=== PATIENT | female | born 1990 | race Caucasian/White ===

== ENCOUNTER → 2016-03-21 | Outpatient (REF) | payer OTHER | LOC: M SFHCLERA 14:24 | PROVIDERS: ATTEND Family Medicine | DX: Z34.81 Encounter for supervision of other normal pregnancy, first trimester (principal); Z3A.01 Less than 8 weeks gestation of pregnancy ==

== ENCOUNTER → 2016-03-21 | Outpatient (CLI) | payer OTHER, SELFPAY | LOC: M RAD 17:11 | PROVIDERS: ATTEND Family Medicine | DX: Z34.81 Encounter for supervision of other normal pregnancy, first trimester (principal); Z3A.01 Less than 8 weeks gestation of pregnancy ==

== ENCOUNTER → 2016-03-22 | Outpatient (REF) | payer OTHER ==
[2016-03-23 12:26] LABS: MEAN CORPUSCULAR HEMOGLOBIN 30.7 pg (27.0-33.0); MEAN CORPUSCULAR HGB CONC 32.5 g/dl (32.0-36.5); MEAN CORPUSCULAR VOLUME 94.7 fl (80.0-96.0); RED CELL DISTRIBUTION WIDTH 12.6 % (11.5-14.5); WHITE BLOOD COUNT 7.4 K/mm3 (4.0-10.0)
[2016-03-23 12:58] LABS: ALBUMIN 3.4 GM/DL (3.2-5.2); ALKALINE PHOSPHATASE 76 U/L (45-117); ALT/SGPT 15 U/L (12-78); ANION GAP 12 MEQ/L (8-16); AST/SGOT 9 U/L (15-37); BILIRUBIN,TOTAL 0.1 MG/DL (0.2-1.0); BLOOD UREA NITROGEN 9 MG/DL (7-18); CALCIUM LEVEL 8.4 MG/DL (8.5-10.1); CARBON DIOXIDE LEVEL 23 MEQ/L (21-32); CHLORIDE LEVEL 110 MEQ/L (98-107); CREATININE FOR GFR 0.74 MG/DL (0.55-1.02); GLOMERULAR FILTRATION RATE > 60.0 (>60); GLUCOSE, FASTING 93 MG/DL (70-105); HCG, SERUM QUANTITATIVE 53802 MIU/ML; POTASSIUM SERUM 3.6 MEQ/L (3.5-5.1); SODIUM LEVEL 145 MEQ/L (136-145); TOTAL PROTEIN 6.5 GM/DL (6.4-8.2)
== END ==
LOC: M SFHCLERA 17:53
PROVIDERS: ATTEND Family Medicine
DX: Z34.81 Encounter for supervision of other normal pregnancy, first trimester (principal); Z3A.01 Less than 8 weeks gestation of pregnancy

== ENCOUNTER 2016-03-25 15:04 | Emergency (ER) | payer MEDICAID, SELFPAY ==
--- NOTE | 2016-03-25 17:41 | EDDOCDS ---
Physician Documentation [facility] Name: Homero Franks Age: 25 yrs Sex: Female : 1990 Arrival Date: 03/25/2016 Time: 15:04 Bed TR8 Private MD: Nabeel Villegas MD Disposition: 03/25/16 17:34 Discharged to Home/Self Care. Impression: related conditions, unspecified, first trimester. - Condition is Stable. - Discharge Instructions: First Trimester of . - Medication Reconciliation form. - Follow up: Emergency Department; When: As needed. Follow up: Sim Kebede MD; When: Call to arrange an appointment; Reason: To establish care. - Problem is new. - Symptoms are unchanged. Historical: - Allergies: opioids (Anaphylaxis); - Home Meds: 1. none - PMHx: Asthma; Heart Murmur; - PSHx: Tonsillectomy; Cesearean Section; - Social history: Smoking status: Patient states was never smoker of tobacco. No barriers to communication noted, The patient speaks fluent Marshallese. - Family history: Not pertinent. - : The pt / caregiver states he / she is not on anticoagulants. Home medication list is obtained from the patient. - Exposure Risk Screening:: None identified. SECTION CHIEF: 03/25 15:15 LMP 02/04/2016, Verified, EDC 11/10/2016, Gestational age from LMP: 7 weeks 1 dayrs3 Vital Signs: 15:06 BP 174 / 97; Pulse 109; Resp 18 S; Temp 99.0(O); Pulse Ox 99% on R/A; Weight 92.08 kg / dd6 203 lbs (R); Height 5 ft. 9 in. (175.26 cm) (R); 17:34 BP 144 / 78; Pulse 76; Resp 20 S; Temp 96(T); Pulse Ox 100% on R/A; ms2 15:06 Body Mass Index 29.98 (92.08 kg, 175.26 cm) dd6 MDM: 17:27 Vital Signs ordered. cc10 Signatures: Jas SutherlandRN RN ms2 Tara Polo RN RN rs3 Andrea Garber, PA-C PA-C cc10 MTDD
--- NOTE | 2016-03-25 17:41 | EDDOCDS ---
Nurse's Notes [facility] Name: Homero Franks Age: 25 yrs Sex: Female : 1990 Arrival Date: 03/25/2016 Time: 15:04 Bed TR8 Private MD: Nabeel Villegas MD Diagnosis: related conditions, unspecified, first trimester Presentation: 03/25 15:12 Presenting complaint: Patient states: had ultrasound this afternoon here for rs3 confirmation. received call from Dr. Goldsmith to come to ER, FHT decreased. denies vaginal bleeding/cramps. Adult Sepsis Screening: The patient does not have new or worsening altered mentation. Patient's respiratory rate is less than 22. Systolic blood pressure is greater than 100. Patient has a qSOFA score of 0- Negative Sepsis Screen. Suicide/Homicide risk assessment- the patient denies having any suicidal and/or homicidal ideations and does not present with any other emotional, behavioral or mental health complaints. Status: Patient is not a patient service associate or dependent. Transition of care: patient was not received from another setting of care. 15:12 Acuity: YAMILET Level 3 rs3 15:12 Method Of Arrival: Walkin/Carried/Asstd rs3 Triage Assessment: 15:15 General: Appears in no apparent distress. Pain: Denies pain. Pt Declines HIV testing. 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 none - PMHx: Asthma; Heart Murmur; - PSHx: Tonsillectomy; Cesearean Section; - Social history: Smoking status: Patient states was never smoker of tobacco. No barriers to communication noted, The patient speaks fluent Belizean. - Family history: Not pertinent. - : The pt / caregiver states he / she is not on anticoagulants. Home medication list is obtained from the patient. - Exposure Risk Screening:: None identified. Screenin:39 Screening information is obtained from the patient. Fall risk: No risks identified. ms2 Assistance ADL's: requires no assistance with activities of daily living. Abuse/DV Screen: The patient / caregiver reports he/she is: not in a situation that causes fear, pain or injury. Nutritional screening: No deficits noted. Advance Directives: Currently, there is no health care proxy. There is no active DNR order. There is no living will. There is no Power of Poiser. Advance directive information has not previously been placed in an [facility] medical record. Further advance directive information is declined. home support is adequate. Assessment: 17:38 General: Appears in no apparent distress, Behavior is anxious, cooperative. ms2 Neurological: Level of Consciousness is awake, alert, obeys commands. Respiratory: No deficits noted. Airway is patent Respiratory effort is even, unlabored, Respiratory pattern is regular, symmetrical. Derm: Skin is pink, warm & dry. Musculoskeletal: Range of motion intact in all extremities. Vital Signs: 15:06 BP 174 / 97; Pulse 109; Resp 18 S; Temp 99.0(O); Pulse Ox 99% on R/A; Weight 92.08 kg dd6 (R); Height 5 ft. 9 in. (175.26 cm) (R); 17:34 BP 144 / 78; Pulse 76; Resp 20 S; Temp 96(T); Pulse Ox 100% on R/A; ms2 15:06 Body Mass Index 29.98 (92.08 kg, 175.26 cm) dd6 Vitals: 15:06 Log In Time: March 25, 2016 at 15:04. dd6 ED Course: 15:05 Patient visited by Ian Milton PCA. dd6 15:05 Nabeel Villegas is Private Physician. dd6 15:05 Patient moved to Waiting dd6 15:06 Patient moved to Pre RCE dd6 15:15 Triage Initiated rs3 16:19 Patient moved to Triage 3 dwg 16:21 Patient moved to Triage 1 ld5 17:17 [facility]. cc10 17:17 Eduardo Burks MD is Attending Physician. cc10 17:17 Patient visited by Andrea Garber PA-C. cc10 17:17 Patient visited by Andrea Garber PA-C. cc10 17:34 Sim Kebede MD is Referral Physician. cc10 17:36 Patient moved to TR8 ct3 17:39 The patient / caregiver is instructed regarding the plan of care and ED course. ms2 17:39 No IV's were initiated during this patient's visit. No procedures done that require ms2 assistance. Order Results: There are currently no results for this order. Outcome: 17:34 Discharge ordered by Provider. cc10 17:40 Discharge Assessment: patient administered narcotics - no. The following High Risk ms2 Discharge criteria are identified: None. Discharged to home ambulatory. Condition: stable. Discharge instructions given to patient, Instructed on discharge instructions, follow up and referral plans. Demonstrated understanding of instructions, Pt was receptive of discharge instructions/ teaching. No special radiology studies were completed. Property sent home with patient. 17:41 Patient left the ED. ms2 Signatures: Jas Sutherland,RN RN ms2 Eladio Espinoza RN RN Ian Bradford, SIGN MAKER SIGN MAKER dd6 Tara PoloRN RN rs3 Savi Vides,RN RN ld5 Farzana Valle, SIGN MAKER SIGN MAKER ct3 Andrea Garber, PA-C PA-C cc10 MTDD
--- NOTE | 2016-03-27 18:42 | EDDOCDS ---
Physician Documentation [facility] Name: Homero Franks Age: 25 yrs Sex: Female : 1990 Arrival Date: 03/25/2016 Time: 15:04 Bed TR8 Private MD: Nabeel Villegas MD Disposition: 03/25/16 17:34 Discharged to Home/Self Care. Impression: related conditions, unspecified, first trimester. - Condition is Stable. - Discharge Instructions: First Trimester of . - Medication Reconciliation form. - Follow up: Emergency Department; When: As needed. Follow up: Sim Kebede MD; When: Call to arrange an appointment; Reason: To establish care. - Problem is new. - Symptoms are unchanged. Historical: - Allergies: opioids (Anaphylaxis); - Home Meds: 1. none - PMHx: Asthma; Heart Murmur; - PSHx: Tonsillectomy; Cesearean Section; - Social history: Smoking status: Patient states was never smoker of tobacco. No barriers to communication noted, The patient speaks fluent [place]. - Family history: Not pertinent. - : The pt / caregiver states he / she is not on anticoagulants. Home medication list is obtained from the patient. - Exposure Risk Screening:: None identified. 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 9 in. (175.26 cm) (R); 17:34 BP 144 / 78; Pulse 76; Resp 20 S; Temp 96(T); Pulse Ox 100% on R/A; ms2 15:06 Body Mass Index 29.98 (92.08 kg, 175.26 cm) dd6 MDM: 17:27 Vital Signs ordered. cc10 17:42 [facility] Payment Agreement was scanned into [employer] and attached to record. jp5 17:42 Financial registration complete. jp5 03/26 11:05 T-Sheet-- Draft Copy was scanned into [employer] and attached to record. gb Signatures: Jas SutherlandRN RN ms2 Roselyn Sapp, Reg Reg gb Tara Polo RN RN rs3 Andrea Garber, JUSTICE PAPrakash cc10 Avel Gee jp5 The chart was reviewed and I authenticate all verbal orders and agree with the evaluation and treatment provided.Attachments: 03/25 17:42 [facility] Payment Agreement jp5 03/26 11:05 T-Sheet-- Draft Copy gb Chart Complete MTDD
--- NOTE | 2016-03-27 18:42 | EDDOCDS ---
Nurse's Notes [facility] Name: Homero Franks Age: 25 yrs Sex: Female : 1990 Arrival Date: 03/25/2016 Time: 15:04 Bed TR8 Private MD: Nabeel Villegas MD Diagnosis: related conditions, unspecified, first trimester Presentation: 03/25 15:12 Presenting complaint: Patient states: had ultrasound this afternoon here for rs3 confirmation. received call from Dr. Goldsmith to come to ER, FHT decreased. denies vaginal bleeding/cramps. Adult Sepsis Screening: The patient does not have new or worsening altered mentation. Patient's respiratory rate is less than 22. Systolic blood pressure is greater than 100. Patient has a qSOFA score of 0- Negative Sepsis Screen. Suicide/Homicide risk assessment- the patient denies having any suicidal and/or homicidal ideations and does not present with any other emotional, behavioral or mental health complaints. Status: Patient is not a director pharmacy services or dependent. Transition of care: patient was not received from another setting of care. 15:12 Acuity: YAMILET Level 3 rs3 15:12 Method Of Arrival: Walkin/Carried/Asstd rs3 Triage Assessment: 15:15 General: Appears in no apparent distress. Pain: Denies pain. Pt Declines HIV testing. 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 none - PMHx: Asthma; Heart Murmur; - PSHx: Tonsillectomy; Cesearean Section; - Social history: Smoking status: Patient states was never smoker of tobacco. No barriers to communication noted, The patient speaks fluent Trinidadian. - Family history: Not pertinent. - : The pt / caregiver states he / she is not on anticoagulants. Home medication list is obtained from the patient. - Exposure Risk Screening:: None identified. Screenin:39 Screening information is obtained from the patient. Fall risk: No risks identified. ms2 Assistance ADL's: requires no assistance with activities of daily living. Abuse/DV Screen: The patient / caregiver reports he/she is: not in a situation that causes fear, pain or injury. Nutritional screening: No deficits noted. Advance Directives: Currently, there is no health care proxy. There is no active DNR order. There is no living will. There is no Power of District Manager [employer]. Advance directive information has not previously been placed in an [facility] medical record. Further advance directive information is declined. home support is adequate. Assessment: 17:38 General: Appears in no apparent distress, Behavior is anxious, cooperative. ms2 Neurological: Level of Consciousness is awake, alert, obeys commands. Respiratory: No deficits noted. Airway is patent Respiratory effort is even, unlabored, Respiratory pattern is regular, symmetrical. Derm: Skin is pink, warm & dry. Musculoskeletal: Range of motion intact in all extremities. Vital Signs: 15:06 BP 174 / 97; Pulse 109; Resp 18 S; Temp 99.0(O); Pulse Ox 99% on R/A; Weight 92.08 kg dd6 (R); Height 5 ft. 9 in. (175.26 cm) (R); 17:34 BP 144 / 78; Pulse 76; Resp 20 S; Temp 96(T); Pulse Ox 100% on R/A; ms2 15:06 Body Mass Index 29.98 (92.08 kg, 175.26 cm) dd6 Vitals: 15:06 Log In Time: March 25, 2016 at 15:04. dd6 ED Course: 15:05 Patient visited by Ian Milton PCA. dd6 15:05 Nabeel Villegas is Private Physician. dd6 15:05 Patient moved to Waiting dd6 15:06 Patient moved to Pre RCE dd6 15:15 Triage Initiated rs3 16:19 Patient moved to Triage 3 dwg 16:21 Patient moved to Triage 1 ld5 17:17 Andrea Garber [facility]C [facility] cc10 17:17 Eduardo Burks MD is Attending Physician. cc10 17:17 Patient visited by Andrea Garber PA-C. cc10 17:17 Patient visited by Andrea Garber PA-C. cc10 17:34 Sim Kebede MD is Referral Physician. cc10 17:36 Patient moved to TR8 ct3 17:39 The patient / caregiver is instructed regarding the plan of care and ED course. ms2 17:39 No IV's were initiated during this patient's visit. No procedures done that require ms2 assistance. 17:42 [facility] Payment Agreement was scanned into [employer] and attached to record. jp5 03/26 11:05 T-Sheet-- Draft Copy was scanned into [employer] and attached to record. gb Order Results: There are currently no results for this order. Outcome: 03/25 17:34 Discharge ordered by Provider. cc10 17:40 Discharge Assessment: patient administered narcotics - no. The following High Risk ms2 Discharge criteria are identified: None. Discharged to home ambulatory. Condition: stable. Discharge instructions given to patient, Instructed on discharge instructions, follow up and referral plans. Demonstrated understanding of instructions, Pt was receptive of discharge instructions/ teaching. No special radiology studies were completed. Property sent home with patient. 17:41 Patient left the ED. ms2 Signatures: Jas Sutherland,RN RN ms2 Eladio Espinoza, RN RN dwg Roselyn Sapp, Reg Reg gb Ian Milton, CREDIT ASSESSMENT ANALYST CREDIT ASSESSMENT ANALYST dd6 Tara PoloRN RN rs3 Savi VidesRN RN ld5 Farzana Valle, CREDIT ASSESSMENT ANALYST CREDIT ASSESSMENT ANALYST ct3 Andrea Garber PA-Dion PA-C cc10 Avel Gee jp5 Chart Complete MTDD
--- NOTE | 2016-03-27 18:42 | EDDOCDS ---
Physician Documentation [facility] Name: Homero Franks Age: 25 yrs Sex: Female : 1990 Arrival Date: 03/25/2016 Time: 15:04 Bed TR8 Private MD: Nabeel Villegas MD Disposition: 03/25/16 17:34 Discharged to Home/Self Care. Impression: related conditions, unspecified, first trimester. - Condition is Stable. - Discharge Instructions: First Trimester of . - Medication Reconciliation form. - Follow up: Emergency Department; When: As needed. Follow up: Sim Kebede MD; When: Call to arrange an appointment; Reason: To establish care. - Problem is new. - Symptoms are unchanged. Historical: - Allergies: opioids (Anaphylaxis); - Home Meds: 1. none - PMHx: Asthma; Heart Murmur; - PSHx: Tonsillectomy; Cesearean Section; - Social history: Smoking status: Patient states was never smoker of tobacco. No barriers to communication noted, The patient speaks fluent Ivorian. - Family history: Not pertinent. - : The pt / caregiver states he / she is not on anticoagulants. Home medication list is obtained from the patient. - Exposure Risk Screening:: None identified. 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 9 in. (175.26 cm) (R); 17:34 BP 144 / 78; Pulse 76; Resp 20 S; Temp 96(T); Pulse Ox 100% on R/A; ms2 15:06 Body Mass Index 29.98 (92.08 kg, 175.26 cm) dd6 MDM: 17:27 Vital Signs ordered. cc10 17:42 [facility] Payment Agreement was scanned into [employer] and attached to record. jp5 17:42 Financial registration complete. jp5 03/26 11:05 T-Sheet-- Draft Copy was scanned into [employer] and attached to record. gb Signatures: Jas SutherlandRN RN ms2 Roselyn Sapp, Reg Reg gb Tara Polo RN RN rs3 Andrea Garber, JUSTICE PAPrakash cc10 Avel Gee jp5 The chart was reviewed and I authenticate all verbal orders and agree with the evaluation and treatment provided.Attachments: 03/25 17:42 [facility] Payment Agreement jp5 03/26 11:05 T-Sheet-- Draft Copy gb Chart Complete MTDD
== END 2016-03-25 17:41 | disposition home or self-care (01) ==
LOC: M ED 15:04
DX: O36.8910 Maternal care for other specified fetal problems, first trimester, not applicable or unspecified (principal); O99.511 Diseases of the respiratory system complicating pregnancy, first trimester; J45.909 Unspecified asthma, uncomplicated; O99.411 Diseases of the circulatory system complicating pregnancy, first trimester; R01.1 Cardiac murmur, unspecified; Z88.5 Allergy status to narcotic agent; Z3A.01 Less than 8 weeks gestation of pregnancy

== ENCOUNTER → 2016-03-25 | Outpatient (CLI) | payer OTHER, SELFPAY ==
--- NOTE | 2016-03-25 13:58 | REP ---
TRANSVAGINAL PELVIC ULTRASOUND, FIRST TRIMESTER: 03/25/2016 INDICATION: The patient had first trimester OB ultrasound 03/21/2016 which was performed transabdominally. The patient returned today for additional transvaginal imaging of the uterus with transvaginal imaging. On prior study 03/21/2016, a single intrauterine fetus with crown-rump length 4 mm length corresponding to 6 weeks 0 day gestational age with ARABELLA 11/14/2016. heart rate was 143 beats per minute. Date of last menstrual period is unknown. Based on first ultrasound fetus should be 0-kmmj-1-day with ARABELLA 11/14/2016. At this time single intrauterine fetus is noted with a crown-rump length 1.0 cm corresponding 0-bjiw-1-day gestational age by ultrasound. heart rate 122-125 beats per minute by M-mode. A yolk sac is identified. pole is 1.0 cm length corresponding to 8-fprm-0-day gestational age ARABELLA 11/11/2016 . A small yolk sac is identified. There is no visualized subchorionic hemorrhage. The bilateral ovaries are visualized and contain small follicles. Perfusion was documented to the bilateral ovaries. There is trace free fluid is identified adjacent to the right adnexa IMPRESSION: Single intrauterine fetus of 6-mzys-2-day gestational age by ultrasound today, with ARABELLA 11/11/2016. The heart rate today 122 beats per minute by M-mode was previously 143 beats per minute on prior ultrasound performed 03/21/2016. Recommend followup for heart rate. 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 Signed by Alison Cunningham MD 03/28/2016 10:43 A
== END ==
LOC: M RAD 12:01
PROVIDERS: ATTEND Family Medicine
DX: Z34.81 Encounter for supervision of other normal pregnancy, first trimester (principal); Z3A.01 Less than 8 weeks gestation of pregnancy

== ENCOUNTER → 2016-03-29 | Outpatient (REF) | payer OTHER ==
[2016-03-29 18:47] LABS: BASO % 0.3 % (0.0-1.0); EOS % 0.3 % (0.0-3.0); LARGE UNSTAINED CELL # 0.1 K/mm3 (0.0-0.4); LARGE UNSTAINED CELL % 1.1 % (0.0-4.0); LYMPH # 1.7 K/mm3 (1.5-6.5); LYMPH % 22.6 % (24.0-44.0); MEAN CORPUSCULAR HEMOGLOBIN 30.9 pg (27.0-33.0); MEAN CORPUSCULAR HGB CONC 34.2 g/dl (32.0-36.5); MEAN CORPUSCULAR VOLUME 90.3 fl (80.0-96.0); MONO # 0.4 K/mm3 (0.0-0.8); MONO % 5.3 % (0.0-5.0); NEUTROPHILS # 5.3 K/mm3 (1.8-7.7); NEUTROPHILS % 70.4 % (36.0-66.0); PLATELET COUNT, AUTOMATED 225 k/mm3 (150-450); RED CELL DISTRIBUTION WIDTH 11.7 % (11.5-14.5); WHITE BLOOD COUNT 7.6 K/mm3 (4.0-10.0)
[2016-03-29 19:44] LABS: ALBUMIN 3.8 GM/DL (3.2-5.2); ALBUMIN/GLOBULIN RATIO 1.06 (1.00-1.93); ALKALINE PHOSPHATASE 53 U/L (45-117); ALT/SGPT 15 U/L (12-78); ANION GAP 11 MEQ/L (8-16); AST/SGOT 13 U/L (15-37); BILIRUBIN,TOTAL 0.5 MG/DL (0.2-1.0); BLOOD UREA NITROGEN 7 MG/DL (7-18); CARBON DIOXIDE LEVEL 23 MEQ/L (21-32); CHLORIDE LEVEL 104 MEQ/L (98-107); CREATININE FOR GFR 0.64 MG/DL (0.55-1.02); GLOMERULAR FILTRATION RATE > 60.0 (>60); GLUCOSE, FASTING 77 MG/DL (70-105); POTASSIUM SERUM 3.6 MEQ/L (3.5-5.1); SODIUM LEVEL 138 MEQ/L (136-145); TOTAL PROTEIN 7.4 GM/DL (6.4-8.2)
[2016-03-30 09:22] LABS: HIV SCRN NEGATIVE (NEGATIVE); HIV SCRN1 NEGATIVE (NEGATIVE)
[2016-03-30 09:29] LABS: CONTROL LINE INT CTR LINE PRESENT
[2016-03-30 09:55] LABS: HBsAg Prenatal NEGATIVE (NEGATIVE)
== END ==
LOC: M SFHCLERA 12:03
PROVIDERS: ATTEND Family Medicine
DX: Z3A.01 Less than 8 weeks gestation of pregnancy (principal)

== ENCOUNTER → 2016-05-16 | Outpatient (CLI) | payer OTHER, MEDICAID | LOC: M SMT 11:37 | PROVIDERS: ATTEND Specialist | DX: Z31.430 Encounter of female for testing for genetic disease carrier status for procreative management (principal) ==

== ENCOUNTER → 2016-06-20 | Outpatient (CLI) | payer OTHER ==
--- NOTE | 2016-06-21 04:20 | REP ---
Clinical: Anatomical evaluation. Comparison: 03/25/2016 . Findings: Examination demonstrates a single live intrauterine in breech presentation. motion is identified by technologist. Placenta is noted anteriorly and grade zero without evidence for placenta previa or abruption. Amniotic fluid volume is normal. Cervix measures 3.8 cm in length and appears closed. No evidence for nuchal cord. Gestational age by LMP 19 weeks 4 days with ARABELLA 11/10/2016 . Gestational age by current measurements 19 weeks 5 days with ARABELLA 11/09/2016 . FHR equals 150 beats per minute. BPD 4.2 cm 18 weeks 5 days HC 17.0 cm 19 weeks 5 days AC 15.4 cm 20 weeks 4 days FL 2.9 cm 19 weeks 0 days HL 3.2 cm 20 weeks 6 days HC/AC ratio 1.11 Estimated weight 314 grams ( 54th percentile). Anatomical assessment demonstrates normal structures including cranium, choroid plexus, cavum, cerebellum/posterior fossa, facial features, lungs, diaphragm, stomach, cord insertion/three-vessel cord, kidneys/bladder, spine, and extremities. Limited evaluation of the heart and ventricular outflow tracts. Impression: Single live intrauterine in breech presentation demonstrating appropriate interval growth. Limited evaluation of the heart/ventricular outflow tracts. Remainder of the anatomical assessment is complete and normal. Signed by Ranjan Lopez MD 06/21/2016 04:11 A
== END ==
LOC: M RAD 12:46
PROVIDERS: ATTEND Specialist
DX: Z36 Encounter for antenatal screening of mother (principal); Z3A.19 19 weeks gestation of pregnancy

== ENCOUNTER → 2016-06-24 | Outpatient (REF) | payer OTHER | LOC: M LAB REF 12:53 | PROVIDERS: ATTEND Advanced Practice Midwife | DX: Z34.82 Encounter for supervision of other normal pregnancy, second trimester (principal); N76.0 Acute vaginitis ==

== ENCOUNTER → 2016-07-07 | Outpatient (CLI) | payer OTHER ==
--- NOTE | 2016-07-08 04:15 | REP ---
Clinical: Anatomical evaluation. Comparison: 06/20/2016 . Findings: Examination demonstrates a single live intrauterine in cephalic presentation. motion is identified by technologist. Placenta is noted anteriorly and grade zero without evidence for placenta previa or abruption. Amniotic fluid volume is normal. Cervix measures 3.1 cm in length and appears closed. No evidence for nuchal cord. Gestational age by LMP 22 weeks 0 days with ARABELLA 11/10/2016 . Gestational age by current measurements 23 weeks 0 days with ARABELLA 11/03/2016 . FHR equals 144 beats per minute. Estimated weight 584 grams ( 91st percentile). Anatomical assessment demonstrates normal structures including cranium, choroid plexus, cavum, cerebellum/posterior fossa, facial features, lungs, four-chamber heart/ventricular outflow tracts, diaphragm, stomach, cord insertion/three-vessel cord, kidneys/bladder, spine, and extremities. Impression: Single live intrauterine in cephalic presentation demonstrating appropriate interval growth. Anatomical assessment is complete and normal. Signed by Ranjan Lopez MD 07/08/2016 04:07 A
== END ==
LOC: M RAD 13:07
PROVIDERS: ATTEND Specialist
DX: Z36 Encounter for antenatal screening of mother (principal); Z3A.23 23 weeks gestation of pregnancy

== ENCOUNTER → 2016-08-16 | Outpatient (CLI) | payer OTHER ==
[~2016-08-16] MED LIST: PRENTAB55 PO
[2016-08-16 13:21] LABS: BASO % 0.2 % (0.0-1.0); EOS # 0.1 K/mm3 (0.0-0.50); EOS % 0.6 % (0.0-3.0); LARGE UNSTAINED CELL # 0.1 K/mm3 (0.0-0.4); LARGE UNSTAINED CELL % 0.7 % (0.0-4.0); LYMPH % 18.6 % (24.0-44.0); MEAN CORPUSCULAR HEMOGLOBIN 31.3 pg (27.0-33.0); MEAN CORPUSCULAR HGB CONC 33.2 g/dl (32.0-36.5); MEAN CORPUSCULAR VOLUME 94.3 fl (80.0-96.0); MONO # 0.5 K/mm3 (0.0-0.8); MONO % 4.7 % (0.0-5.0); NEUTROPHILS # 7.7 K/mm3 (1.8-7.7); NEUTROPHILS % 75.2 % (36.0-66.0); PLATELET COUNT, AUTOMATED 268 k/mm3 (150-450); RED CELL DISTRIBUTION WIDTH 12.7 % (11.5-14.5); WHITE BLOOD COUNT 10.2 K/mm3 (4.0-10.0)
== END ==
LOC: M SMT 10:03
PROVIDERS: ATTEND Specialist
DX: Z34.82 Encounter for supervision of other normal pregnancy, second trimester (principal)

== ENCOUNTER 2016-08-21 00:24 | Outpatient (CLI) | payer OTHER ==
[~2016-08-21] VITALS: Ht 175.3 cm; Wt 102.0 kg
[2016-08-21] MEDS ORDERED: PRENTAB55 PO (00:49)
[2016-08-21] MEDS ORDERED: IBUPROFEN 800 MG TAB PO ONE (02:00)
== END 2016-08-21 02:10 | disposition home or self-care (01) ==
LOC: M LDO 00:24
PROVIDERS: ATTEND Specialist
DX: O26.893 Other specified pregnancy related conditions, third trimester (principal); Z3A.28 28 weeks gestation of pregnancy; R10.2 Pelvic and perineal pain; M54.5 Low back pain

== ENCOUNTER → 2016-08-24 | Outpatient (CLI) | payer OTHER | LOC: M LAB 06:17 | PROVIDERS: ATTEND Specialist | DX: Z34.82 Encounter for supervision of other normal pregnancy, second trimester (principal) ==

== ENCOUNTER → 2016-09-08 | Outpatient (CLI) | payer OTHER ==
[~2016-09-08] MED LIST changes: +ACET50TA PO; +ATEN50TA2 PO; +IBUP-1114 PO; +TUMS500C PO
--- NOTE | 2016-09-08 14:28 | REP ---
Clinical: Abnormal nonstress test. Technique: Transabdominal obstetrical ultrasound with color Doppler evaluation. Findings: Ultrasound examination demonstrates a single live advanced gestation in cephalic presentation. motion was identified by technologist. Placenta is noted anteriorly and grade 1 without evidence for placenta previa or abruption. Amniotic fluid volume is within normal limits. Gestational age by LMP 31 weeks 0 days with ARABELLA 11/10/2016. heart rate equals 127 beats per minute. Biophysical profile score equals 8/8. Amniotic fluid index equals 11.7 cm (8.8 - 23.8). Umbilical cord SD ratio equals 1.90. Impression: Single live advanced gestation in cephalic presentation. Biophysical profile score equals 8/8. Amniotic fluid volume normal. Signed by Ranjan Lopez MD 09/08/2016 02:19 P
== END ==
LOC: M RAD 13:31
PROVIDERS: ATTEND Advanced Practice Midwife
DX: O24.410 Gestational diabetes mellitus in pregnancy, diet controlled (principal); Z3A.31 31 weeks gestation of pregnancy

== ENCOUNTER → 2016-09-12 | Outpatient (CLI) | payer OTHER ==
[2016-09-12 17:07] LABS: BASO % 0.2 % (0.0-1.0); EOS % 0.4 % (0.0-3.0); LARGE UNSTAINED CELL # 0.1 K/mm3 (0.0-0.4); LYMPH # 2.1 K/mm3 (1.5-6.5); MEAN CORPUSCULAR HEMOGLOBIN 30.8 pg (27.0-33.0); MEAN CORPUSCULAR VOLUME 90.7 fl (80.0-96.0); MONO # 0.6 K/mm3 (0.0-0.8); NEUTROPHILS # 6.5 K/mm3 (1.8-7.7); NEUTROPHILS % 70.3 % (36.0-66.0); PLATELET COUNT, AUTOMATED 254 k/mm3 (150-450); RED CELL DISTRIBUTION WIDTH 12.5 % (11.5-14.5); WHITE BLOOD COUNT 9.2 K/mm3 (4.0-10.0)
[2016-09-12 17:39] LABS: ALT/SGPT 14 U/L (12-78); AST/SGOT 8 U/L (15-37); BILIRUBIN,TOTAL 0.3 MG/DL (0.2-1.0); GLOMERULAR FILTRATION RATE > 60.0 (>60); T UPTAKE 25 % (30-39); THYROXINE (T4) 16.8 UG/DL (4.5-12.0); URIC ACID 4.1 MG/DL (2.6-6.0)
== END ==
LOC: M LAB 15:04
PROVIDERS: ATTEND Advanced Practice Midwife
DX: O24.410 Gestational diabetes mellitus in pregnancy, diet controlled (principal); R42 Dizziness and giddiness; Z3A.00 Weeks of gestation of pregnancy not specified

== ENCOUNTER → 2016-09-14 | Outpatient (CLI) | payer OTHER ==
--- NOTE | 2016-09-14 14:45 | REP ---
Obstetric sonography: History: Nonreactive NST. Gestational diabetes. Findings: Limited obstetric sonography demonstrates a viable single intrauterine fetus in a cephalic lie. An anterior placenta is seen grade 1 without evidence of previa or abruption. Closed cervical length is 3.5 cm measured transabdominally. The heart rate is recorder 127 beats per minute. Amniotic fluid is subjectively low normal. JAMIE is normal at 10.9 cm. Biophysical profile score is eight out of a possible eight. SD ratio in the umbilical cord artery by Doppler is somewhat decreased 2.10 (2.502-3.50). Signed by Pineda Garza MD 09/14/2016 02:37 P
== END ==
LOC: M RAD 13:50
PROVIDERS: ATTEND Advanced Practice Midwife
DX: O24.410 Gestational diabetes mellitus in pregnancy, diet controlled (principal); Z11.3 Encounter for screening for infections with a predominantly sexual mode of transmission

== ENCOUNTER 2016-09-23 14:26 | Outpatient (CLI) | payer OTHER ==
[~2016-09-23] VITALS: Ht 175.3 cm; Wt 100.0 kg
[~2016-09-23 14:26] MED LIST changes: -ACET50TA PO; -ATEN50TA2 PO; -IBUP-1114 PO; -TUMS500C PO
[2016-09-23 14:46] VITALS: BP 115/72
[2016-09-23] MEDS ORDERED: ACET50TA PO (15:02)
[2016-09-23] MEDS ORDERED: TUMS500C PO (15:02)
[2016-09-23] MEDS ORDERED: ATEN50TA2 PO (15:02)
[2016-09-23 15:34] VITALS: BP 109/65
== END 2016-09-23 15:50 | disposition home or self-care (01) ==
LOC: M LDO 14:26
PROVIDERS: ATTEND Specialist
DX: Z34.83 Encounter for supervision of other normal pregnancy, third trimester (principal); Z3A.33 33 weeks gestation of pregnancy; Z88.8 Allergy status to other drugs, medicaments and biological substances; Z88.5 Allergy status to narcotic agent; Z91.040 Latex allergy status

== ENCOUNTER → 2016-09-23 | Outpatient (CLI) | payer OTHER ==
--- NOTE | 2016-09-23 14:38 | REP ---
Obstetric ultrasonography for well being: Based on the first ultrasound during this gestation the gestational age is 32 weeks 4 days. ARABELLA of 11/14/2016. There is a single intrauterine gestation in a vertex presentation. heart rate is 128 beats per minute. Subjectively amniotic fluid volume is in the low normal range. The amniotic fluid index is 11.1 (8.3 - 24.5). biophysical profile: Breathing 0 Movement 2 Tone 0 AFV 2 Total 4/8 Umbilical artery Doppler assessment: SD ratio 2.09 Resistive index 0.52 Diastolic flow velocity 20.0 cm/sec. These values are in the normal range. Signed by Eladio Ernandez MD 09/23/2016 02:30 P
== END ==
LOC: M RAD 13:23
PROVIDERS: ATTEND Advanced Practice Midwife
DX: O24.410 Gestational diabetes mellitus in pregnancy, diet controlled (principal); Z3A.32 32 weeks gestation of pregnancy

== ENCOUNTER → 2016-09-28 | Outpatient (CLI) | payer OTHER ==
[~2016-09-28] MED LIST changes: +ACET50TA PO; +ATEN50TA2 PO; +IBUP-1114 PO; +TUMS500C PO
--- NOTE | 2016-09-28 15:06 | REP ---
BIOPHYSICAL PROFILE, OB ULTRASOUND: Real-time sonographic evaluation of the gravid uterus is performed and demonstrates a single living intrauterine gestation with an estimated gestational age of 33 weeks 6 days based on the LMP with EDC 11/10/2016. heart rate 126 beats per minute. Amniotic fluid appears within normal limits, JAMIE 9.8 with a normal range of 8.1 and 24.8. Biophysical profile score is 8/8. S/D ratio 1.92 is slightly below normal range of 2.0 to 3.0. RI is 0.48, is below normal range of 0.59 to 0.75. position is vertex. Placenta is anterior and grade 3 with no previa or abruption. Signed by Eladio Leach MD 09/29/2016 05:52 P
== END ==
LOC: M RAD 13:26
PROVIDERS: ATTEND Advanced Practice Midwife
DX: O24.410 Gestational diabetes mellitus in pregnancy, diet controlled (principal); Z3A.00 Weeks of gestation of pregnancy not specified

== ENCOUNTER 2016-09-29 23:16 | Outpatient (CLI) | payer OTHER ==
[~2016-09-29] VITALS: Ht 175.3 cm; Wt 99.0 kg
[~2016-09-29 23:16] MED LIST changes: -IBUP-1114 PO
[2016-09-29 23:25] VITALS: BP 131/85
== END 2016-09-30 00:45 | disposition home or self-care (01) ==
LOC: M LDO 23:16
PROVIDERS: ATTEND Obstetrics & Gynecology
DX: O47.03 False labor before 37 completed weeks of gestation, third trimester (principal); Z3A.34 34 weeks gestation of pregnancy; Z88.5 Allergy status to narcotic agent; Z88.8 Allergy status to other drugs, medicaments and biological substances; Z91.040 Latex allergy status

== ENCOUNTER 2016-10-01 19:02 | Outpatient (CLI) | payer OTHER ==
[~2016-10-01] VITALS: Ht 175.3 cm; Wt 97.0 kg
[2016-10-01 19:13] VITALS: BP 125/70
[2016-10-01 20:14] LABS: MEAN CORPUSCULAR HEMOGLOBIN 30.2 pg (27.0-33.0); MEAN CORPUSCULAR VOLUME 88.8 fl (80.0-96.0); RED CELL DISTRIBUTION WIDTH 12.9 % (11.5-14.5); WHITE BLOOD COUNT 9.9 K/mm3 (4.0-10.0)
[2016-10-01 20:23] LABS: INR 0.92
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
--- NOTE | 2016-10-01 23:30 | REPUSA ---
OBSTETRICAL ULTRASOUND INDICATION: OB screening. FINDINGS: A single live intrauterine gestation was identified with a heart rate of 139 bpm. The amniotic fluid index was normal measuring 10.9 centimeters. Umbilical artery systolic velocity measu res 47.1 cm/s. Systolic/diastolic ratio measures 2.39. Resistive index measures 0.58. Normal mo vement, breathing movements and tone are noted. IMPRESSION: 1. Single live intrauterine . Biophysical profile measures 10/11.
[2016-10-02] MEDS ORDERED: ACETAMINOPHEN 500 MG TAB PO PRN (00:30)
--- NOTE | 2016-10-02 00:58 | IPNPDOC ---
Text Note Date of Service The patient was seen on 10/02/16. NOTE Subjective: Patient reports she feels some miriam upt[place] and has back pain when she has them. Reports that she passed a blood clot the size of a plum but did not keep it. Reports active movement. Objective: FHR 120, moderate variability, positive accelerations, no decelerations. Contractions are occasional. Vital signs within normal limits. Labs: see below. Assessment: IUP at 34.3 weeks gestation, chronic abruption, Category I FHR tracing, GBS unknown Plan: Labs and ultrasound reviewed with Dr. Andersen. Plan is to keep patient overnight and observe. Patient is to keep her pads so we can monitor her bleeding. Continuous monitoring. May repeat labs in the morning. VS,Fishbone, I+O VS, Fishbone, I+O Laboratory Tests 10/01/16 20:06 Red Blood Count 3.67, Mean Corpuscular Volume 88.8, Mean Corpuscular Hemoglobin 30.2, Mean Corpuscular Hemoglobin Concent 34.0, Red Cell Distribution Width 12.9 Laboratory Tests Vital Signs Date Time Temp Pulse Resp B/P (MAP) Pulse Ox O2 Delivery O2 Flow Rate FiO2 10/01/16 19:13 97.1 82 18 125/70 (88) 96 Room Air Laboratory Tests 10/01/16 20:06: White Blood Count 9.9, Red Blood Count 3.67L, Hemoglobin 11.1L, Hematocrit 32.6L , Mean Corpuscular Volume 88.8, Mean Corpuscular Hemoglobin 30.2, Mean Corpuscular Hemoglobin Concent 34.0, Red Cell Distribution Width 12.9, Platelet Count 280, Prothrombin Time 12.4, Prothromb Time International Ratio 0.92, Activated Partial Thromboplast Time 25.2L BRAYAN HOPKINS CNM Oct 02, 2016 00:58
[2016-10-02 07:15] VITALS: BP 110/61
[2016-10-02 08:21] VITALS: BP 114/60
[2016-10-02] MEDS ORDERED: ATENOLOL 50 MG TAB PO SCH (09:00)
[2016-10-02] MEDS ORDERED: PRENATAL VITAMINS CHEWABLE TABLET PO SCH (09:00)
--- NOTE | 2016-10-02 10:33 | IPNPDOC ---
Text Note Date of Service The patient was seen on 10/02/16 at 0900. NOTE Subjective: Patient is a 26-year-old female who is a who is 34 weeks 3 days gestation with an ARABELLA of 11/10/2016. She presented to labor and delivery on the with complaints of vaginal bleeding, cramping, and lower back pain. She reported the bleeding to be bright red and also reported passing a clot. Currently she denies bright red vaginal bleeding. Denies back pain or cramping. Reports active movement. Patient also reports that she has barely felt her baby move throughout her resulting in weakly BPP's and frequent NSTs in the office. Objective: Vital signs: 114/60, 73, 98.1. Labs were stable last night and her KB is 0. Throughout the night she has a scant amount of dark brown bleeding noted on her pad. No bright red bleeding. Rhogam received 08/17/2016. heart rate 120, moderate variability, positive accelerations, no decelerations. Contractions: none noted. Assessment: IUP at 34 weeks 3 days gestation, chronic abruption, category 1 heart rate tracing, prior section, stable ventricular tachycardia Plan: After discussion with Dr. Kebede plan is to discharge patient. Extensive education done with patient on movement. Patient reports she does go days without feeling baby move. Did review with patient that if she does not feel her baby moving throughout the day she does need to call the office. She is being induced this in 4 days due to lack of movement, chronic abruption, and her stable SVT. Encouraged patient that if she has any bright red bleeding she needs to call the office. Also discussed the patient if she is having back pain or severe abdominal pain she needs to call the office. Reviewed signs and symptoms of labor. Encouraged to call with any signs of labor or leaking of fluid. Patient verbalized understanding. Encouraged to make an appointment with the office on Monday to be seen. She does have a repeat ultrasound on Monday for a BPP. BRAYAN HOPKINS CNM Oct 02, 2016 10:33
== END 2016-10-02 09:19 | disposition home or self-care (01) ==
LOC: M LDO 19:02
PROVIDERS: ATTEND Advanced Practice Midwife
DX: O26.853 Spotting complicating pregnancy, third trimester (principal); O36.8130 Decreased fetal movements, third trimester, not applicable or unspecified; Z3A.34 34 weeks gestation of pregnancy; O24.419 Gestational diabetes mellitus in pregnancy, unspecified control; G43.909 Migraine, unspecified, not intractable, without status migrainosus; J45.909 Unspecified asthma, uncomplicated; E03.9 Hypothyroidism, unspecified; I47.2 Ventricular tachycardia; Z91.040 Latex allergy status; Z88.8 Allergy status to other drugs, medicaments and biological substances; Z88.5 Allergy status to narcotic agent; O99.283 Endocrine, nutritional and metabolic diseases complicating pregnancy, third trimester; O99.353 Diseases of the nervous system complicating pregnancy, third trimester; O99.413 Diseases of the circulatory system complicating pregnancy, third trimester; O99.513 Diseases of the respiratory system complicating pregnancy, third trimester

== ENCOUNTER 2016-10-07 00:27 | Inpatient (IN) | payer OTHER ==
[2016-10-07] VITALS (59 sets, daily range): BP systolic 91–131; BP diastolic 39–77
[~2016-10-07] VITALS: Ht 177.8 cm; Wt 104.0 kg
[2016-10-07] MEDS ORDERED: PENICILLIN G POTASSIUM IV 5 MU in D5W MINI-BAG PLUS 100 ML IV STA (08:06)
[2016-10-07] MEDS ORDERED: LACTATED RINGER'S 1000 ML IV STA (08:06)
[2016-10-07] MEDS ORDERED: LR 1,000 ML IV SCH (08:06)
[2016-10-07] MEDS ORDERED: OXYTOCIN DRIP 30 UNITS in APPROPRIATE DILUENT 1 EA IV SCH ×2 (08:15→21:50)
[2016-10-07] MEDS ORDERED: AMPICILLIN SOD 2 GM in D5W MINI-BAG PLUS 100 ML IV STA (08:44)
[2016-10-07 08:58] LABS: MEAN CORPUSCULAR HGB CONC 33.1 g/dl (32.0-36.5); MEAN CORPUSCULAR VOLUME 90.6 fl (80.0-96.0); RED CELL DISTRIBUTION WIDTH 13.5 % (11.5-14.5); WHITE BLOOD COUNT 9.4 K/mm3 (4.0-10.0)
--- NOTE | 2016-10-07 09:33 | HPE ---
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 She denied loss of fluid. There was good movement. COURSE: The patient initiated care at 14 weeks gestation on 05/16/2016. Her blood pressure was 124/74. She developed chest pain during the and was seen by cardiology who did a Holter monitor. There were intermittent episodes of ventricular tachycardia noted. This occurred on 09/19/2016. The patient was immediately referred down to [place] to the Center where she was observed for several days and placed on continuous monitoring. She was placed on atenolol 50 mg twice a day and had no further episodes of ventricular tachycardia. She had cardiology consults throughout. The patient has chronic low back and incisional pain. Has seen pain management for this in the past. She had a revision of her prior section scar in [place] due to pain previously. She was diagnosed with gestational diabetes, which was diet controlled during the . She also was seen at 34 weeks for an episode of bleeding and diagnosed with a probable abruption at that time. She continued to have sporadic bleeding. Due to the history of ventricular tachycardia as well as the chronic bleeding and abruption, decision was made to move towards delivery early. OBSTETRICAL HISTORY: 1. May 2012, 38 week section, 6 pound 9 ounce male . She had preeclampsia with that . MEDICAL HISTORY: 1. Hypothyroidism. 2. Chronic pain. SURGICAL HISTORY: 1. section. 2. Tonsillectomy. 3. Scar tissure removal from section. ALLERGIES: 1. She has an intolerance to OPIOID medication. SOCIAL HISTORY: The father of the baby is involved. The patient denies cigarettes, alcohol or drug use during . Her partner is in the . FAMILY HISTORY: Noncontributory. PHYSICAL EXAMINATION: Blood pressure 124/72, pulse 84. She is in no apparent distress. Head and neck exam is normal. Lungs clear. Heart regular rate and rhythm. Abdomen nontender, gravid. heart tones category 1. Contractions are irregular. Sterile vaginal exam 3 cm, 80% effaced, -2 station, moderate amount of blood in the vagina. Extremities nontender. LABORATORIES: O negative. Rubella immune. RPR nonreactive. Hepatitis B and C negative. HIV negative. Group B Streptococcus (GBS) positive. ASSESSMENT: 26-year-old G4, P1 female at 35-1/7 weeks gestation with maternal history of intermittent ventricular tachycardia, as well as problem with chronic abruption and labor. Patient is admitted on 10/07/2016. Decision is to proceed towards delivery by labor augmentation. The patient understands the risk of vaginal after section () versus repeat section. Patient will be treated with antibiotics for GBS positive status.
[2016-10-07] MEDS ORDERED: ATENOLOL 50 MG TAB PO ONE (10:00)
[2016-10-07] MEDS ORDERED: PENICILLIN G POTASSIUM IV 2.5 MU in D5W 100 ML IV SCH (12:00)
[2016-10-07] MEDS: AMPICILLIN SOD 1 GM in D5W MINI-BAG PLUS 50 ML IV SCH ×2 (13:30→18:02)
[2016-10-07] MEDS ORDERED: FENTANYL 2MCG/ML ROPIVACAINE 0.2% IN 0.9% NACL 200ML IVBAG As Ordered ONE (16:47)
[2016-10-07] MEDS ORDERED: ONDANSETRON 4MG/2ML VIAL (J2405) As Ordered ONE (17:35)
[2016-10-07] MEDS ORDERED: LACTATED RINGER'S 1000 ML IV PRN (17:45)
[2016-10-07] MEDS ORDERED: REFRIGERATOR IV KEYS XX PRN (17:45)
[2016-10-07] MEDS ORDERED: FENTANYL/ROPIVACAINE/NACL BAG 200 ML EPIDURAL SCH (17:45)
[2016-10-07] MEDS ORDERED: EPIDURAL/PCA KEYS XX PRN (17:45)
[2016-10-07] MEDS ORDERED: ONDANSETRON 4MG/2ML VIAL (J2405) IV PRN (17:45)
[2016-10-07] MEDS ORDERED: ePHEDrine SULFATE 25 MG/5 ML(5MG/ML) SYRINGE IV PRN (17:45)
[2016-10-07] MEDS ORDERED: NALOXONE INJ 0.4 MG/1 ML VIAL (J2310) IV PRN (17:45)
[2016-10-07] MEDS ORDERED: EPIDURAL COMMENT XX SCH (17:45)
[2016-10-07] MEDS ORDERED: diphenhydrAMINE INJ 50MG/ML VIAL (J1200) IV PRN (17:45)
[2016-10-07] MEDS ORDERED: ONDANSETRON 4MG/2ML VIAL (J2405) IV ONE (18:30)
[2016-10-07 19:52] LABS: MEAN CORPUSCULAR HEMOGLOBIN 30.1 pg (27.0-33.0); MEAN CORPUSCULAR HGB CONC 33.3 g/dl (32.0-36.5); MEAN CORPUSCULAR VOLUME 90.3 fl (80.0-96.0); RED CELL DISTRIBUTION WIDTH 13.8 % (11.5-14.5); WHITE BLOOD COUNT 13.6 K/mm3 (4.0-10.0)
[2016-10-07 20:19] LABS: ALBUMIN 2.3 GM/DL (3.2-5.2); ALBUMIN/GLOBULIN RATIO 0.68 (1.00-1.93); ALKALINE PHOSPHATASE 123 U/L (45-117); ALT/SGPT 12 U/L (12-78); ANION GAP 14 MEQ/L (8-16); AST/SGOT 11 U/L (15-37); BILIRUBIN,TOTAL 0.3 MG/DL (0.2-1.0); BLOOD UREA NITROGEN 8 MG/DL (7-18); CALCIUM LEVEL 8.9 MG/DL (8.5-10.1); CARBON DIOXIDE LEVEL 21 MEQ/L (21-32); CHLORIDE LEVEL 109 MEQ/L (98-107); CREATININE FOR GFR 0.57 MG/DL (0.55-1.02); GLOMERULAR FILTRATION RATE > 60.0 (>60); GLUCOSE, FASTING 93 MG/DL (70-105); POTASSIUM SERUM 3.8 MEQ/L (3.5-5.1); SODIUM LEVEL 144 MEQ/L (136-145); TOTAL PROTEIN 5.7 GM/DL (6.4-8.2); URIC ACID 4.4 MG/DL (2.6-6.0)
[2016-10-07 22:00] LABS: CORD GAS ABE A -0.9; CORD GAS ABE V -3.5; CORD GAS HCO3 A 26.1 MEQ/L; CORD GAS HCO3 V 21.2 MEQ/L; CORD GAS O2 SAT A 69.9 %; CORD GAS O2 SAT V 79.4 %; CORD GAS PCO2 A 52.2 mmHg; CORD GAS PCO2 V 37.6 mmHg; CORD GAS PH A 7.316 UNITS; CORD GAS PH V 7.37 UNITS; CORD GAS PO2 A 31.3 mmHg; CORD GAS PO2 V 34.5 mmHg; CORD GAS SBC A 23.1 MEQ/L; CORD GAS SBC V 21.2 MEQ/L; CORD GAS TCO2 A 27.7 MEQ/L; CORD GAS TCO2 V 22.4 MEQ/L
[2016-10-07] MEDS ORDERED: ANUSOL HC CREAM 30GM TOP PRN (22:00)
[2016-10-07] MEDS ORDERED: DOCUSATE SODIUM 100 MG CAP PO PRN (22:00)
[2016-10-07] MEDS ORDERED: MEASLES,MUMPS,RUBELLA VACCINE INJ (MMR-II) (90707) SC SCH (22:00)
[2016-10-07] MEDS ORDERED: RHOGAM 300 MCG (1500 IU) INJ (J2790) IM SCH (22:00)
[2016-10-07] MEDS ORDERED: METHYLERGONOVINE MALEATE 0.2 MG TAB PO PRN (22:00)
[2016-10-07] MEDS: ACETAMINOPHEN 500 MG TAB PO PRN (22:25)
[2016-10-08] MEDS ORDERED: diphenhydrAMINE INJ 50MG/ML VIAL (J1200) IV ONE
[2016-10-08] MEDS: IBUPROFEN 800 MG TAB PO PRN ×3 (00:31→17:31)
[2016-10-08] MEDS: DIBUCAINE 1% OINTMENT 30GM TOP PRN (00:32)
[2016-10-08 06:03] VITALS: BP 116/58
[2016-10-08] MEDS: ACETAMINOPHEN 500 MG TAB PO PRN (06:11)
[2016-10-08 07:45] LABS: MEAN CORPUSCULAR HEMOGLOBIN 30.1 pg (27.0-33.0); MEAN CORPUSCULAR HGB CONC 33.2 g/dl (32.0-36.5); MEAN CORPUSCULAR VOLUME 90.6 fl (80.0-96.0); RED CELL DISTRIBUTION WIDTH 13.7 % (11.5-14.5)
[2016-10-08 08:00] LABS: ANION GAP 12 MEQ/L (8-16); BLOOD UREA NITROGEN 6 MG/DL (7-18); CALCIUM LEVEL 8.4 MG/DL (8.5-10.1); CARBON DIOXIDE LEVEL 21 MEQ/L (21-32); CHLORIDE LEVEL 110 MEQ/L (98-107); CREATININE FOR GFR 0.55 MG/DL (0.55-1.02); GLOMERULAR FILTRATION RATE > 60.0 (>60); GLUCOSE, FASTING 96 MG/DL (70-105); POTASSIUM SERUM 3.6 MEQ/L (3.5-5.1); SODIUM LEVEL 143 MEQ/L (136-145)
[2016-10-08] MEDS: PRENATAL VITAMINS CHEWABLE TABLET PO SCH (08:08)
[2016-10-08] MEDS: ATENOLOL 50 MG TAB PO SCH (08:09)
--- NOTE | 2016-10-08 13:35 | ECGEPIP ---
Stationary ECG Study [facility] Test Date: 2016-10-07 Room: [place] [address] Gender: F Wafer Fab Technician: GUCCI : 1990 Requested By: Sim Kebede Order Number: [id number] Reading MD: Juan Dukes Measurements Intervals [place] Rate: 66 P: 5 GA: 162 QRS: 28 QRSD: 90 T: 12 QT: 396 QTc: 416 Interpretive Statements SINUS RHYTHM Within normal limits. No prior ECG available for comparison at the time of interpretation. Electronically Signed On 10-08-2016 13:35:08 EDT by Juan Dukes
[2016-10-08 18:00] VITALS: BP 135/76
[2016-10-09] MEDS: DIBUCAINE 1% OINTMENT 30GM TOP PRN (00:25)
[2016-10-09] MEDS: IBUPROFEN 800 MG TAB PO PRN ×2 (01:56→14:49)
[2016-10-09 06:00] VITALS: BP 117/55
[2016-10-09] MEDS: ACETAMINOPHEN 500 MG TAB PO PRN (07:19)
[2016-10-09] MEDS: PRENATAL VITAMINS CHEWABLE TABLET PO SCH (09:18)
[2016-10-09 09:19] VITALS: BP 130/70
[2016-10-09] MEDS: ATENOLOL 50 MG TAB PO SCH (09:19)
--- NOTE | 2016-10-09 13:37 | DN ---
DATE: 10/07/2016 Homero is a 26-year-old female 4, para 1-0-2-1 with a history of gestational diabetes, diet-controlled, ventricular tachycardia who was admitted for induction after recommendation from the center. She underwent artificial rupture of membranes with Pitocin induction. She did have a questionable history of partial abruption during the . She progressed to fully dilated and delivered a live female with a nuchal cord times one, scores 8 and 9, weight 6 pounds, 8 ounces. Placenta delivered spontaneously intact. Three-vessel cord. Two small periurethral lacerations were noted which ere repaired using 4-0 chromic. Estimated blood loss 300 mL. Both mother and baby in stable condition. The baby was cared for by our chemist steroids, Dr. Bailon. The patient had a successful vaginal after section () without any complication.
[2016-10-09] MEDS ORDERED: IBUP-1114 PO (14:32)
[2016-10-09] MEDS ORDERED: ACET50TA PO (14:32)
--- NOTE | 2016-10-10 11:43 | DSES ---
DATE OF ADMISSION: 10/07/2016 DATE OF DISCHARGE: 10/09/2016 FINAL DIAGNOSES: 1. Intrauterine at 35-3/7 weeks gestation. 2. History of gestational diabetes diet controlled. 3. 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 4. History of prior section for trial of labor after section. DISCHARGE DIAGNOSES: 1. Intrauterine at 35-3/7 weeks gestation. 2. History of gestational diabetes diet controlled. 3. 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 4. History of prior section for trial of labor after section. 5. Status post successful vaginal after section () During this admission phone consult with edge banding off bearer Dr. Dukes. CONDITION ON DISCHARGE: Stable. DISCHARGE INSTRUCTIONS: Patient is instructed to call if there is any severe bleeding, pain or temperature greater than 101. She will have a followup appointment with her OB providers for 6 weeks and she is to call her edge banding off bearer as soon as possible for a followup visit. BRIEF HISTORY: Homero is a 26-year-old female 4, para 1-0-2-1 with a history of prior section, history of gestational diabetes diet controlled with this , ventricular tachycardia diagnosed during this currently wearing loop monitor which is being monitored remotely by her edge banding off bearer. She was admitted for an induction and a trial of labor after section. She underwent a successful , and was then transferred to [facility] for care. During her antepartum stay she had a phone consult with her edge banding off bearer. A 12-lead EKG was done, which found her to be in sinus rhythm with a ventricular rate of 68. After delivery she was monitored on maternity. She remained without any complication. She was on atenolol 50 mg. On the day of discharge a full exam was done which was essentially within normal limits. She was then discharged home in stable condition to followup with her OB doctor in approximately 6 weeks for visit and her edge banding off bearer as soon as possible.
== END 2016-10-09 19:00 | disposition home or self-care (01) | DRG 560 ==
LOC: M LDO 00:27 → M LDI 07:56 → M OBS 23:14
PROVIDERS: ADMIT Specialist; ATTEND Specialist
PROC: 10E0XZZ Delivery of Products of Conception, External Approach (ICD-10-PCS; principal; 2016-10-07)
PROC: 0HQ9XZZ Repair Perineum Skin, External Approach (ICD-10-PCS; 2016-10-07)
PROC: 3E033VJ Introduction of Other Hormone into Peripheral Vein, Percutaneous Approach (ICD-10-PCS; 2016-10-07)
PROC: 10907ZC Drainage of Amniotic Fluid, Therapeutic from Products of Conception, Via Natural or Artificial Opening (ICD-10-PCS; 2016-10-07)
DX: O99.42 Diseases of the circulatory system complicating childbirth (principal); I47.2 Ventricular tachycardia; O24.420 Gestational diabetes mellitus in childbirth, diet controlled; Z37.0 Single live birth; Z3A.35 35 weeks gestation of pregnancy; E03.9 Hypothyroidism, unspecified; O99.284 Endocrine, nutritional and metabolic diseases complicating childbirth; O34.211 Maternal care for low transverse scar from previous cesarean delivery; Z88.5 Allergy status to narcotic agent; O99.820 Streptococcus B carrier state complicating pregnancy; O69.82X0 Labor and delivery complicated by other cord entanglement, without compression, not applicable or unspecified; O70.0 First degree perineal laceration during delivery

== ENCOUNTER → 2016-11-11 | Outpatient (REF) | payer OTHER, MEDICAID ==
[~2016-11-11] MED LIST changes: +IBUP-1114 PO
== END ==
LOC: M LAB REF 13:58
PROVIDERS: ATTEND Advanced Practice Midwife
DX: R30.0 Dysuria (principal); Z11.3 Encounter for screening for infections with a predominantly sexual mode of transmission

== ENCOUNTER → 2016-11-21 | Outpatient (REF) | payer OTHER, MEDICAID | LOC: M LAB REF 14:44 | PROVIDERS: ATTEND Specialist | DX: Z12.4 Encounter for screening for malignant neoplasm of cervix (principal); R87.610 Atypical squamous cells of undetermined significance on cytologic smear of cervix (ASC-US) ==

== ENCOUNTER → 2016-11-22 | Outpatient (CLI) | payer OTHER ==
[2016-11-22 15:46] LABS: ANION GAP 7 MEQ/L (8-16); BLOOD UREA NITROGEN 10 MG/DL (7-18); CALCIUM LEVEL 8.9 MG/DL (8.5-10.1); CARBON DIOXIDE LEVEL 26 MEQ/L (21-32); CHLORIDE LEVEL 108 MEQ/L (98-107); CREATININE FOR GFR 0.68 MG/DL (0.55-1.02); GLOMERULAR FILTRATION RATE > 60.0 (>60); GLUCOSE, FASTING 82 MG/DL (70-105); POTASSIUM SERUM 3.9 MEQ/L (3.5-5.1); SODIUM LEVEL 141 MEQ/L (136-145)
== END ==
LOC: M LAB 14:56
PROVIDERS: ATTEND Internal Medicine Cardiovascular Disease
DX: I50.9 Heart failure, unspecified (principal); I48.91 Unspecified atrial fibrillation

== ENCOUNTER → 2016-12-13 | Outpatient (CLI) | payer OTHER ==
[2016-12-13 17:40] LABS: ANION GAP 6 MEQ/L (8-16); BLOOD UREA NITROGEN 14 MG/DL (7-18); CALCIUM LEVEL 9.5 MG/DL (8.5-10.1); CARBON DIOXIDE LEVEL 27 MEQ/L (21-32); CHLORIDE LEVEL 107 MEQ/L (98-107); CREATININE FOR GFR 0.69 MG/DL (0.55-1.02); GLOMERULAR FILTRATION RATE > 60.0 (>60); GLUCOSE, FASTING 75 MG/DL (70-105); SODIUM LEVEL 140 MEQ/L (136-145)
== END ==
LOC: M LAB 16:01
PROVIDERS: ATTEND Internal Medicine Cardiovascular Disease
DX: I50.9 Heart failure, unspecified (principal); I48.91 Unspecified atrial fibrillation

== ENCOUNTER → 2017-01-13 | Outpatient (CLI) | payer OTHER ==
[2017-01-13 15:00] LABS: MEAN CORPUSCULAR HEMOGLOBIN 29.9 pg (27.0-33.0); MEAN CORPUSCULAR HGB CONC 33.3 g/dl (32.0-36.5); PLATELET COUNT, AUTOMATED 274 10^3/uL (150-450); RED CELL DISTRIBUTION WIDTH 12.6 % (11.5-14.5); WHITE BLOOD COUNT 6.8 10^3/uL (4.0-10.0)
[2017-01-13 15:22] LABS: ANION GAP 10 MEQ/L (8-16); BLOOD UREA NITROGEN 13 MG/DL (7-18); CALCIUM LEVEL 9.3 MG/DL (8.5-10.1); CARBON DIOXIDE LEVEL 23 MEQ/L (21-32); CHLORIDE LEVEL 107 MEQ/L (98-107); CREATININE FOR GFR 0.65 MG/DL (0.55-1.02); GLOMERULAR FILTRATION RATE > 60.0 (>60); GLUCOSE, FASTING 102 MG/DL (70-105); POTASSIUM SERUM 4.4 MEQ/L (3.5-5.1); SODIUM LEVEL 140 MEQ/L (136-145)
== END ==
LOC: M LAB 14:22
PROVIDERS: ATTEND Internal Medicine Cardiovascular Disease
DX: I47.2 Ventricular tachycardia (principal)

== ENCOUNTER → 2017-05-16 | Outpatient (REF) | payer OTHER ==
[2017-05-16 22:01] LABS: CHLAMYDIA DNA AMPLIFICATION NEGATIVE (NEGATIVE); GC DNA AMPLIFICATION NEGATIVE (NEGATIVE)
== END ==
LOC: M LAB REF 16:56
DX: R30.0 Dysuria (principal); Z11.3 Encounter for screening for infections with a predominantly sexual mode of transmission
CPT/HCPCS: 87086

== ENCOUNTER 2017-08-29 18:29 | Emergency (ER) | payer OTHER ==
[2017-08-29 18:06] LABS: BASO # 0.1 10^3/uL (0.0-0.2); BASO % 0.5 % (0.0-1.0); EOS % 0.3 % (0.0-3.0); HEMATOCRIT 44.7 % (36.0-47.0); HEMOGLOBIN 15.1 g/dl (12.0-15.5); IMMATURE GRANULOCYTE % 0.3 % (0-3.0); LYMPH # 3.1 10^3/uL (1.5-6.5); LYMPH % 32.7 % (24.0-44.0); MEAN CORPUSCULAR HEMOGLOBIN 30.3 pg (27.0-33.0); MEAN CORPUSCULAR HGB CONC 33.8 g/dl (32.0-36.5); MEAN CORPUSCULAR VOLUME 89.6 fl (80.0-96.0); MONO # 0.6 10^3/uL (0.0-0.8); MONO % 6.6 % (0.0-5.0); NEUTROPHILS # 5.7 10^3/uL (1.8-7.7); NEUTROPHILS % 59.6 % (36.0-66.0); PLATELET COUNT, AUTOMATED 289 10^3/uL (150-450); RED BLOOD COUNT 4.99 10^6/uL (4.00-5.40); RED CELL DISTRIBUTION WIDTH 12.2 % (11.5-14.5); WHITE BLOOD COUNT 9.5 10^3/uL (4.0-10.0)
[2017-08-29 18:19] LABS: KETONE, URINE AUTO RFX NEGATIVE (NEGATIVE); NITRITE, URINE AUTO RFX NEGATIVE (NEGATIVE); RBC, URINE AUTO RFX 5 /HPF (0-3); SPECIFIC GRAVITY UR AUTO RFX 1.008 (1.002-1.035); SQUAM EPITHELIAL CELL UR AURFX 2 /HPF (0-6)
[2017-08-29 18:20] LABS: LEUKOCYTE ESTERASE UR AUTO RFX 3+ (NEGATIVE); WBC, URINE AUTO RFX 49 /HPF (0-3)
[2017-08-29 18:27] LABS: ANION GAP 11 MEQ/L (8-16); BLOOD UREA NITROGEN 12 MG/DL (7-18); CALCIUM LEVEL 8.9 MG/DL (8.5-10.1); CARBON DIOXIDE LEVEL 22 MEQ/L (21-32); CHLORIDE LEVEL 109 MEQ/L (98-107); CREATININE FOR GFR 0.75 MG/DL (0.55-1.30); GLOMERULAR FILTRATION RATE > 60.0 (>60); GLUCOSE, FASTING 102 MG/DL (70-100); POTASSIUM SERUM 3.9 MEQ/L (3.5-5.1); SODIUM LEVEL 142 MEQ/L (136-145)
[2017-08-29 18:28] LABS: LACTIC ACID SEPSIS PROTOCOL 1.1 MMOL/L (0.4-2.0)
[2017-08-29] MEDS: cefTRIAXone SOD 1 GM in D5W MINI-BAG PLUS 50 ML IV (18:46)
[2017-08-29] MEDS: DOXYCYCLINE HYCLATE 100 MG TAB PO (18:46)
[2017-08-29] MEDS: CLINDAMYCIN 900 MG in APPROPRIATE DILUENT 1 EA IV (19:30)
== END 2017-08-29 20:56 | disposition home or self-care (01) ==
LOC: M ED 18:29
DX: N83.202 Unspecified ovarian cyst, left side (principal); R94.31 Abnormal electrocardiogram [ECG] [EKG]; Z88.5 Allergy status to narcotic agent; Z88.8 Allergy status to other drugs, medicaments and biological substances; Z91.040 Latex allergy status; Z79.899 Other long term (current) drug therapy
CPT/HCPCS: J0696

== ENCOUNTER → 2017-09-21 | Outpatient (CLI) | payer OTHER ==
[2017-09-21 17:44] LABS: HEMATOCRIT 42.8 % (36.0-47.0); HEMOGLOBIN 14.3 g/dl (12.0-15.5); MEAN CORPUSCULAR HEMOGLOBIN 30.7 pg (27.0-33.0); MEAN CORPUSCULAR HGB CONC 33.4 g/dl (32.0-36.5); MEAN CORPUSCULAR VOLUME 91.8 fl (80.0-96.0); PLATELET COUNT, AUTOMATED 249 10^3/uL (150-450); RED BLOOD COUNT 4.66 10^6/uL (4.00-5.40); RED CELL DISTRIBUTION WIDTH 12.1 % (11.5-14.5)
[2017-09-21 17:59] LABS: ANION GAP 8 MEQ/L (8-16); BLOOD UREA NITROGEN 10 MG/DL (7-18); CALCIUM LEVEL 8.5 MG/DL (8.5-10.1); CARBON DIOXIDE LEVEL 22 MEQ/L (21-32); CHLORIDE LEVEL 112 MEQ/L (98-107); CREATININE FOR GFR 0.73 MG/DL (0.55-1.30); GLOMERULAR FILTRATION RATE > 60.0 (>60); GLUCOSE, FASTING 100 MG/DL (70-100); POTASSIUM SERUM 3.7 MEQ/L (3.5-5.1); SODIUM LEVEL 142 MEQ/L (136-145)
== END ==
LOC: M LAB 16:15
DX: I47.1 Supraventricular tachycardia (principal)
CPT/HCPCS: 80048

== ENCOUNTER → 2017-10-12 | Outpatient (REF) | payer OTHER | LOC: M SFHCLERA 13:34 | DX: J02.9 Acute pharyngitis, unspecified (principal) ==

== ENCOUNTER → 2017-12-04 | Outpatient (CLI) | payer OTHER ==
[2017-12-04 17:54] LABS: THYROID STIMULATING HORMONE 0.933 uIU/ML (0.358-3.740)
[2017-12-04 17:55] LABS: FREE T4 1.14 NG/DL (0.76-1.46)
[2017-12-04 17:56] LABS: TOTAL 25(OH) VITAMIN D 53.1 NG/ML (30.0-100.0)
== END ==
LOC: M LAB 17:01
DX: R63.5 Abnormal weight gain (principal)
CPT/HCPCS: 84443

== ENCOUNTER → 2017-12-04 | Outpatient (REF) | payer OTHER | LOC: M LAB REF 12-05 10:13 | DX: Z12.4 Encounter for screening for malignant neoplasm of cervix (principal) ==

== ENCOUNTER → 2017-12-12 | Outpatient (CLI) | payer OTHER | LOC: M RAD 17:05 | DX: Z87.42 Personal history of other diseases of the female genital tract (principal) | CPT/HCPCS: 76856 ==

== ENCOUNTER → 2018-02-14 | Outpatient (REF) | payer OTHER | LOC: M SFHCLERA 17:19 | DX: J02.9 Acute pharyngitis, unspecified (principal) ==

== ENCOUNTER 2018-02-17 07:32 | Emergency (ER) | payer OTHER | END 2018-02-17 08:08 | disposition home or self-care (01) | LOC: M ED 07:32 | DX: J02.9 Acute pharyngitis, unspecified (principal); Z86.19 Personal history of other infectious and parasitic diseases; Z88.5 Allergy status to narcotic agent; Z88.8 Allergy status to other drugs, medicaments and biological substances; Z91.040 Latex allergy status | CPT/HCPCS: 87880 ==

== ENCOUNTER → 2018-03-16 | Outpatient (REF) | payer OTHER ==
[~2018-03-16] MED LIST changes: -ACET50TA PO; +AMOX500C PO; +AZIT500T2 PO; +CLEO150C PO; +DOXY-350 PO; +FLEC150T PO; +MAPA500T2 PO; +NITR100C2 PO; +TERC0.4C TOP
[2018-03-16 13:40] LABS: BASO # 0.1 10^3/uL (0.0-0.2); BASO % 0.8 % (0.0-1.0); EOS % 0.4 % (0.0-3.0); HEMATOCRIT 47.9 % (36.0-47.0); HEMOGLOBIN 15.8 g/dl (12.0-15.5); LYMPH # 2.6 10^3/uL (1.5-6.5); LYMPH % 36.2 % (24.0-44.0); MEAN CORPUSCULAR HEMOGLOBIN 30.2 pg (27.0-33.0); MEAN CORPUSCULAR VOLUME 91.4 fl (80.0-96.0); MONO # 0.6 10^3/uL (0.0-0.8); MONO % 8.5 % (0.0-5.0); NEUTROPHILS # 3.9 10^3/uL (1.8-7.7); NEUTROPHILS % 53.8 % (36.0-66.0); PLATELET COUNT, AUTOMATED 284 10^3/uL (150-450); RED BLOOD COUNT 5.24 10^6/uL (4.00-5.40); WHITE BLOOD COUNT 7.2 10^3/uL (4.0-10.0)
[2018-03-16 13:46] LABS: ALT/SGPT 17 U/L (12-78); BILIRUBIN,TOTAL 0.4 MG/DL (0.2-1.0); BLOOD UREA NITROGEN 12 MG/DL (7-18); CALCIUM LEVEL 9.6 MG/DL (8.5-10.1); CARBON DIOXIDE LEVEL 26 MEQ/L (21-32); CHLORIDE LEVEL 103 MEQ/L (98-107); CREATININE FOR GFR 0.85 MG/DL (0.55-1.30); FREE T4 1.11 NG/DL (0.76-1.46); GLOMERULAR FILTRATION RATE > 60.0 (>60); GLUCOSE, FASTING 73 MG/DL (70-100); POTASSIUM SERUM 4.4 MEQ/L (3.5-5.1); SODIUM LEVEL 137 MEQ/L (136-145); TOTAL PROTEIN 7.5 GM/DL (6.4-8.2)
== END ==
LOC: M LAB REF 12:39
PROVIDERS: ATTEND Family Medicine Addiction Medicine
DX: K59.09 Other constipation (principal); R63.5 Abnormal weight gain; F41.1 Generalized anxiety disorder

== ENCOUNTER 2018-03-24 12:14 | Emergency (ER) | payer OTHER ==
[~2018-03-24] VITALS: Ht 175.3 cm; Wt 90.9 kg
[2018-03-24] MEDS ORDERED: ADACEL/BOOSTRIX VACCINE (DIPHTH/PERTUSS/ACELL/TETANUS)0.5ML SYR (90715) IM ONE (13:00)
[2018-03-24 13:37] VITALS: BP 132/70
== END 2018-03-24 13:39 | disposition home or self-care (01) ==
LOC: M ED 12:14
DX: S71.111A Laceration without foreign body, right thigh, initial encounter (principal); F10.10 Alcohol abuse, uncomplicated; W25.XXXA Contact with sharp glass, initial encounter; Y92.89 Other specified places as the place of occurrence of the external cause; F41.9 Anxiety disorder, unspecified; Q21.0 Ventricular septal defect; Z88.5 Allergy status to narcotic agent; Z88.1 Allergy status to other antibiotic agents; Z91.040 Latex allergy status

== ENCOUNTER → 2018-04-09 | Outpatient (REF) | payer OTHER ==
[2018-04-09 19:41] LABS: BASO # 0.1 10^3/uL (0.0-0.2); BASO % 0.8 % (0.0-1.0); EOS # 0.1 10^3/uL (0.0-0.50); HEMATOCRIT 43.8 % (36.0-47.0); HEMOGLOBIN 14.4 g/dl (12.0-15.5); LYMPH % 41.4 % (24.0-44.0); MEAN CORPUSCULAR HEMOGLOBIN 30.3 pg (27.0-33.0); MEAN CORPUSCULAR HGB CONC 32.9 g/dl (32.0-36.5); MONO # 0.6 10^3/uL (0.0-0.8); MONO % 8.1 % (0.0-5.0); NEUTROPHILS # 3.5 10^3/uL (1.8-7.7); NEUTROPHILS % 48.4 % (36.0-66.0); PLATELET COUNT, AUTOMATED 316 10^3/uL (150-450); RED BLOOD COUNT 4.76 10^6/uL (4.00-5.40); WHITE BLOOD COUNT 7.2 10^3/uL (4.0-10.0)
== END ==
LOC: M LAB REF 17:12
PROVIDERS: ATTEND Family Medicine Addiction Medicine
DX: D75.1 Secondary polycythemia (principal)

== ENCOUNTER → 2018-05-31 | Outpatient (CLI) | payer OTHER ==
[~2018-05-31] MED LIST changes: +TRUL3TAB PO
[2018-05-31 11:17] LABS: FOLLICLE STIMULATING HORMONE 2.1 mIU/mL; FREE T4 1.18 NG/DL (0.76-1.46); LUTEINIZING HORMONE 2.6 mIU/mL; THYROID STIMULATING HORMONE 1.01 uIU/ML (0.358-3.740)
== END ==
LOC: M LAB 10:09
PROVIDERS: ATTEND Advanced Practice Midwife
DX: L63.9 Alopecia areata, unspecified (principal); N64.3 Galactorrhea not associated with childbirth; R63.5 Abnormal weight gain

== ENCOUNTER → 2018-08-28 | Outpatient (CLI) | payer OTHER ==
[~2018-08-28] MED LIST changes: -TERC0.4C TOP; +TERC0.4C2 TOP
[2018-08-28 17:26] LABS: BASO # 0.1 10^3/uL (0.0-0.2); BASO % 0.5 % (0.0-1.0); EOS % 0.2 % (0.0-3.0); HEMATOCRIT 41.2 % (36.0-47.0); HEMOGLOBIN 13.7 g/dl (12.0-15.5); LYMPH # 3.4 10^3/uL (1.5-6.5); LYMPH % 27.4 % (24.0-44.0); MEAN CORPUSCULAR HEMOGLOBIN 30.6 pg (27.0-33.0); MEAN CORPUSCULAR HGB CONC 33.3 g/dl (32.0-36.5); MEAN CORPUSCULAR VOLUME 92.2 fl (80.0-96.0); MONO # 0.9 10^3/uL (0.0-0.8); MONO % 7.5 % (0.0-5.0); PLATELET COUNT, AUTOMATED 243 10^3/uL (150-450); RED BLOOD COUNT 4.47 10^6/uL (4.00-5.40); WHITE BLOOD COUNT 12.5 10^3/uL (4.0-10.0)
[2018-08-28 17:37] LABS: TOTAL PROTEIN,RANDOM URINE 11.9 MG/DL (0.0-12.0)
[2018-08-28 17:45] LABS: ALT/SGPT 17 U/L (12-78); BILIRUBIN,TOTAL 0.1 MG/DL (0.2-1.0); CREATININE FOR GFR 0.87 MG/DL (0.55-1.30); FREE T4 1.18 NG/DL (0.76-1.46); GLOMERULAR FILTRATION RATE > 60.0 (>60); LDH LACTATE DEHYDROGENASE 212 U/L (84-246); THYROID STIMULATING HORMONE 0.632 uIU/ML (0.358-3.740); URIC ACID 3.5 MG/DL (2.6-6.0)
[2018-08-28 19:18] LABS: HEMOGLOBIN A1c 5.1 %
[2018-08-28 23:20] LABS: CHLAMYDIA DNA AMPLIFICATION NEGATIVE (NEGATIVE); GC DNA AMPLIFICATION NEGATIVE (NEGATIVE)
[2018-08-29 10:12] LABS: RUBELLA IgG QUALITATIVE IMMUNE (IMMUNE)
[2018-08-29 10:40] LABS: HEPATITIS C VIRUS ABY INDEX 0.1 INDEX (<0.8)
[2018-08-29 10:41] LABS: HIV 1&2 SCREEN CENTAUR NEGATIVE (NEGATIVE)
== END ==
LOC: M LAB 15:44
PROVIDERS: ATTEND Advanced Practice Midwife
DX: Z34.81 Encounter for supervision of other normal pregnancy, first trimester (principal); Z3A.08 8 weeks gestation of pregnancy

== ENCOUNTER → 2018-08-31 | Outpatient (CLI) | payer OTHER | LOC: M LAB 13:17 | PROVIDERS: ATTEND Advanced Practice Midwife | DX: Z34.81 Encounter for supervision of other normal pregnancy, first trimester (principal); Z3A.08 8 weeks gestation of pregnancy ==